=== PATIENT | male | born 1965 | race Caucasian/White ===

== ENCOUNTER → 2021-04-22 | Day surgery (SDC) | payer OTHER ==
[~2021-04-22] VITALS: Ht 177.8 cm; Wt 71.7 kg
[~2021-04-22] MED LIST: ACETAMINOPHEN500 M1 PO; ALLEGRA ALLERG180 MG PO; COLACE100 MG PO; MIRALAX17 GM PO; MONTELUKAST SOD10 MG PO; MOTRIN600 MG PO; OXY-IR 5MG5 MG PO; ROPINIROLE HCL1 MG PO
== END | disposition home or self-care (01) ==
LOC: FAS 06:14
DX: Z12.11 Encounter for screening for malignant neoplasm of colon (principal); K64.2 Third degree hemorrhoids; K64.8 Other hemorrhoids; F41.9 Anxiety disorder, unspecified; N40.0 Benign prostatic hyperplasia without lower urinary tract symptoms; G25.81 Restless legs syndrome; Z87.891 Personal history of nicotine dependence; Z98.1 Arthrodesis status; Z86.16 Personal history of COVID-19
CPT/HCPCS: J0690; J1644; J2250; J2405; J2704; J3010; J7120